=== PATIENT | male | born 1965 | race African-American/Black ===

== ENCOUNTER 2018-10-26 02:53 | Inpatient (IN) | payer SELFPAY ==
[~2018-10-26] VITALS: Ht 182.9 cm; Wt 98.9 kg
[2018-10-26 04:14] LABS: Basophils # (auto) 0.1 uL; Basophils % (auto) 0.8 % (0.0-2.0); Eosinophils # (auto) 0.1 uL; Hematocrit 45.5 % (41.0-53.0); Hemoglobin 15.7 g/dL (13.5-17.5); Lymphocytes # (auto) 2.2 uL; Lymphocytes % (auto) 29.2 % (10.0-50.0); Mean Corpuscular Hemoglobin 27.7 pg (28.0-32.0); Mean Corpuscular Hgb Conc. 34.6 g/dL (32.0-36.0); Mean Corpuscular Volume 80.1 fL (80.0-100.0); Monocytes # (auto) 0.7 uL; Monocytes % (auto) 9.4 % (0.0-12.0); Neutrophils # (auto) 4.4 uL; Neutrophils % (auto) 58.6 % (37.0-80.0); Nucleated Red Blood Cells % 0.1 %; Platelet Count (auto) 340 10^3/uL (140-450); Red Blood Cells 5.67 10^6/uL (4.5-5.90); Red Cell Distribution Width 12.8 % (11.8-14.3); White Blood Cell 7.4 10^3/uL (4.4-10.8)
[2018-10-26 04:31] LABS: Calcium 8.9 mg/dL (8.5-10.1); Potassium 3.9 mmol/L (3.5-5.1)
[2018-10-26 04:36] LABS: BUN/Creatinine Ratio 14.2; Bilirubin, Total 0.4 mg/dL (0.2-1.0); Total Protein 8.6 g/dL (6.4-8.2)
[2018-10-26 04:44] LABS: INR 0.96 (0.9-1.15); Partial Thromboplastin Time 28.1 sec (23.64-32.05)
[2018-10-26] MEDS ORDERED: ASPirin-EC 325mg tab PO ONE (06:15)
[2018-10-26] MEDS ORDERED: ENOXAPARIN SOD 100 MG/1 ML SYRINGE SC ONE (07:15)
[2018-10-26] MEDS ORDERED: NITROGLYCERIN 0.4 MG SL TAB SL ONE (07:15)
[2018-10-26] MEDS ORDERED: ACETAMINOPHEN 500 MG TAB PO PRN (09:00)
[2018-10-26] MEDS ORDERED: NITROGLYCERIN 0.4 MG SL TAB SL PRN (09:00)
[2018-10-26] MEDS ORDERED: MORPHINE SULF INJ 2 MG/ML SYRINGE 1ML IV PRN ×2 (09:00)
[2018-10-26] MEDS ORDERED: HYDROcodone-ACET 5/325MG TAB PO PRN (09:00)
[2018-10-26] MEDS ORDERED: ONDANSETRON HCL 4 MG/2 ML VIAL IV PRN (09:00)
[2018-10-26] MEDS ORDERED: hydrALAZINE HCL 20 MG/ML VL IV PRN (09:00)
[2018-10-26] MEDS: METOPROLOL TARTRATE 25 MG TAB PO SCH ×2 (10:33→21:37)
[2018-10-26] MEDS: LISINOPRIL 10 MG TAB PO SCH (10:33)
[2018-10-26] MEDS: FAMOTIDINE 20 MG TAB PO SCH (10:34)
[2018-10-26] MEDS: NITROGLYCERIN 0.4MG/HR TOPICAL PATCH TD SCH (10:34)
[2018-10-26] MEDS: DOCUSATE SOD 100 MG CAP PO SCH ×2 (10:34→21:36)
[2018-10-26 16:59] LABS: Alcohol, Urine < 3.0 mg/dL (0-5); Amphetamine Screen, Urine NEGATIVE (NEGATIVE); Barbiturate Scree,Urine NEGATIVE (NEGATIVE); Benzodiazephine Screen, Urine NEGATIVE (NEGATIVE); Cannabinoid Screen, Urine POSITIVE (NEGATIVE); Cocaine Screen, Urine NEGATIVE (NEGATIVE); Opiate Scree,Urine NEGATIVE (NEGATIVE); Phencyclidine Screen, Urine NEGATIVE (NEGATIVE)
[2018-10-26] MEDS ORDERED: AMLO5TAB15 PO (20:54)
--- NOTE | 2018-10-26 21:30 | NUR ---
tele admit from ER pt arrived via wheelchair, awake, alert and oriented x4. pt on room air no distress noted or expressed. pt tele #[id number] showing NSR 75bpm upon arrival. pt able to transfer to bed without issue. pt denies any pain at this time. when asked about pain, pt reports "i have been under a lot of stress lately, i feel like thats got a lot to do with it..." pt continues "since i been here, i havent had any pain". pt oriented to Ambrosio COLBERT as his nurse, the room, and use of call light as well as bed functions. pt updated on plan of care, no questions at this time. pt call light in reach, bed locked, low and 2xrails up. will round on pt q1hr and prn.
[2018-10-26] MEDS: ATORVASTATIN 20 MG TAB PO SCH (21:37)
[2018-10-26 22:00] VITALS: BP 137/79
[2018-10-27 05:00] VITALS: BP 104/63
[2018-10-27 06:19] LABS: Basophils # (auto) 0 uL; Basophils % (auto) 0.4 % (0.0-2.0); Eosinophils # (auto) 0.1 uL; Eosinophils % (auto) 0.9 % (0.0-7.0); Hematocrit 40.3 % (41.0-53.0); Lymphocytes # (auto) 1.5 uL; Lymphocytes % (auto) 18.3 % (10.0-50.0); Mean Corpuscular Hemoglobin 27.7 pg (28.0-32.0); Mean Corpuscular Hgb Conc. 34.7 g/dL (32.0-36.0); Mean Corpuscular Volume 79.6 fL (80.0-100.0); Monocytes % (auto) 11.9 % (0.0-12.0); Neutrophils # (auto) 5.6 uL; Neutrophils % (auto) 68.5 % (37.0-80.0); Nucleated Red Blood Cells % 0.1 %; Platelet Count (auto) 312 10^3/uL (140-450); Red Blood Cells 5.06 10^6/uL (4.5-5.90); Red Cell Distribution Width 12.9 % (11.8-14.3); White Blood Cell 8.2 10^3/uL (4.4-10.8)
[2018-10-27 06:37] LABS: Potassium 4.6 mmol/L (3.5-5.1)
[2018-10-27 06:44] LABS: BUN/Creatinine Ratio 13.3
[2018-10-27 07:07] LABS: INR 0.99 (0.9-1.15); Partial Thromboplastin Time 29.1 sec (23.64-32.05)
--- NOTE | 2018-10-27 08:00 | NUR ---
Morning note Patient resting in bed with even and unlabored respirations, no distress noted. Instructed patient on POC, fall precautions and to call for assistance as needed. patient verbalized understanding. Fall precautions in place with bed in lowest locked position with call light within reach. Will continue to monitor q1hr & PRN.
[2018-10-27 09:00] VITALS: BP 120/78
[2018-10-27] MEDS: FAMOTIDINE 20 MG TAB PO SCH (09:33)
[2018-10-27] MEDS: DOCUSATE SOD 100 MG CAP PO SCH ×2 (09:33→21:26)
[2018-10-27] MEDS: ASPirin-EC 81 mg tab PO SCH (09:33)
[2018-10-27] MEDS: METOPROLOL TARTRATE 25 MG TAB PO SCH ×2 (09:34→21:26)
[2018-10-27] MEDS: LISINOPRIL 10 MG TAB PO SCH (09:34)
[2018-10-27] MEDS: NITROGLYCERIN 0.4MG/HR TOPICAL PATCH TD SCH (10:00)
[2018-10-27 13:00] VITALS: BP 125/76
--- NOTE | 2018-10-27 13:17 | NUR ---
Patient resting in bed with eyes closed respirations even and unlabored, no distress noted.
--- NOTE | 2018-10-27 14:54 | NUR ---
Isaias was at bedside Isaias Franks to Dr. Cheng, was at bedside discussing POC with the patient. Patient verbalized understanding.
--- NOTE | 2018-10-27 15:28 | NUR ---
Patient transferred to [facility] [employer] [facility] via hospital bed. IV patent with no leaking and/or infiltration noted. Consents signed by patient. Care endorsed to Ashley [facility] [employer] RN.
--- NOTE | 2018-10-27 15:56 | NUR ---
RE: intervention patient off unit at scheduled procedure. Addendum: 10/27/18 at 1557 by Olivia Agarwal RN Amended: Links added.
[2018-10-27] MEDS ORDERED: LIDOCAINE 2%HCL (LOCAL ANESTH.) INJ 20ML MDV ONE (15:59)
[2018-10-27] MEDS ORDERED: MIDAZOLAM HCL 1MG/1ML-2 ML VIAL ONE ×2 (16:07→16:58)
[2018-10-27] MEDS ORDERED: ANGIOMAX 250 MG VIAL IV ONE (16:08)
[2018-10-27] MEDS ORDERED: SODIUM CHL 0.9% 50 ML ONE (16:08)
[2018-10-27] MEDS ORDERED: IOHEXOL 350 MG/ML 100ML IJ ONE (16:08)
[2018-10-27] MEDS ORDERED: fentaNYL CITRATE 100 MCG/2 ML VL ONE ×2 (16:08→16:58)
--- NOTE | 2018-10-27 18:18 | NUR ---
Patient back on unit via hospital bed. Right groin assessed and pedal pulse assessed on affected leg for circulation. Dressing to right groin is clean, dry and intact. Bed alarm turned on for safety. Call light within reach.
--- NOTE | 2018-10-27 18:19 | NUR ---
Patient cleared for discharge per Dr. Cheng Orders received and read back to verify.
--- NOTE | 2018-10-27 18:35 | NUR ---
Notified Dr. Bone Notified Dr. Bone of completion of heart catheterization and Dr. Cheng's recommendation. MD verbalized understanding. Patient to be discharged 10/28/18. Patient updated on POC. Patient verbalized understanding.
--- NOTE | 2018-10-27 18:38 | NUR ---
Dressing to right groin clean, dry and intact. Patient denies CP. Pedal pulse assessed on the affected leg for circulation.
--- NOTE | 2018-10-27 18:39 | NUR ---
Closing note patient resting in bed with even and unlabored respirations, no distress noted. Call light within reach.
--- NOTE | 2018-10-27 18:50 | NUR ---
Prescriptions called into preferred pharmacy per Dr. Cheng's order Prescriptions called into [facility] on [address] in [place]. Phone number is [phone]. Spoke with medhat Aguilar. 4 prescriptions called into the patient's preferred pharmacy per Dr. Cheng's order.
--- NOTE | 2018-10-27 19:30 | NUR ---
Care endorsed to FILEMON Santa. Patient resting in bed with even and unlabored respirations, no distress noted. Both RN's assessed right groin dressing. Dressing is clean, dry and intact. Call light within reach.
--- NOTE | 2018-10-27 20:00 | NUR ---
OPENING NOTE RECEIVED REPORT FROM DAYSHIFT RN. ASSUMING ROLE OF CARE OF PATIENT AT THIS TIME. PATIENT EDUCATED ON PLAN OF CARE FOR THE NIGHT AND PATIENT VERBALIZED UNDERSTANDING. PATIENT STATES THAT HE IS HUNGRY THOUGH AND SO PATIENT GIVEN FOOD AT THIS TIME. PATIENT SHOWING NO SIGN OF DISTRESS, SHORTNESS OF BREATH, AND PATIENT DENIES ANY PAIN AT THIS TIME. PATIENT'S DRESSING SHOWED LIGHT SATURATION AT THIS TIME. DRESSING CHANGED AND REINFORCED. CHARGE NURSE MADE AWARE. BED LOWERED, CALL LIGHT WITHIN REACH, AND PATIENT WILL BE ROUNDED ON EVERY HOUR AND NEEDED.
[2018-10-27] MEDS: ATORVASTATIN 20 MG TAB PO SCH (21:26)
[2018-10-27 22:00] VITALS: BP 134/78
[2018-10-28 05:00] VITALS: BP 149/89
--- NOTE | 2018-10-28 08:30 | NUR ---
WET PROCESS MILLER RIGGS IN TO EVALUATE PT FROM CARDIOLOGY STAND POINT. PT AWAKE, ALERT, COOPERATIVE OF CARE. ALL QUESTIONS AND CONCERNS ADDRESSED. PT IN AGREEMENT WITH PLAN OF CARE.
[2018-10-28 09:15] VITALS: BP 141/89
[2018-10-28] MEDS: FAMOTIDINE 20 MG TAB PO SCH (09:56)
[2018-10-28] MEDS: DOCUSATE SOD 100 MG CAP PO SCH (09:56)
[2018-10-28] MEDS: LISINOPRIL 10 MG TAB PO SCH (09:57)
[2018-10-28] MEDS: ASPirin-EC 81 mg tab PO SCH (09:57)
[2018-10-28] MEDS: NITROGLYCERIN 0.4MG/HR TOPICAL PATCH TD SCH (09:57)
[2018-10-28] MEDS: METOPROLOL TARTRATE 25 MG TAB PO SCH (09:57)
[2018-10-28] MEDS ORDERED: DILTIAZEM HCL 120MG ER CAP PO SCH (10:00)
--- NOTE | 2018-10-28 12:50 | NUR ---
DR. FITZPATRICK IN TO SEE PT. PER MD PT OK FOR DC HOME. PT IN AGREEMENT. PRESCRIPTION MEDICATIONS VERIFICATION AT PT'S PREFERRED PHARMACY DONE. PHARMACY [facility] HAS PRESCRIPTION.
[2018-10-28 13:08] VITALS: BP 138/86
[2018-10-28 13:33] VITALS: BP 138/86
--- NOTE | 2018-10-28 14:10 | NUR ---
DISCHARGE INSTRUCTIONS PROVIDED TO PT. PT VERBALIZED UNDERSTANDING FOR PRESCRIPTION ORDERS AND FOLLOW UP APPOINTMENT. EDUCATIONAL MATERIAL PROVIDED, QUESTIONS AND CONCERNS ADDRESSED. TELE BOX REMOVED AND RETURNED TO [facility]. IV CATHETER DC'D, CATHETER INTACT, NO PHLEBITIS. PT SAFELY ESCORTED OUT OF UNIT. NO S/S OF DISTRESS.
== END 2018-10-28 14:00 | disposition home or self-care (01) | DRG 282 ==
LOC: ER 02:57 → TELE 02:58 → TELE-WESTW 20:47
PROVIDERS: ADMIT Nurse Practitioner Acute Care; ATTEND Internal Medicine
PROC: 4A023N7 Measurement of Cardiac Sampling and Pressure, Left Heart, Percutaneous Approach (ICD-10-PCS; principal; 2018-10-27)
PROC: B2111ZZ Fluoroscopy of Multiple Coronary Arteries using Low Osmolar Contrast (ICD-10-PCS; 2018-10-27)
PROC: B2151ZZ Fluoroscopy of Left Heart using Low Osmolar Contrast (ICD-10-PCS; 2018-10-27)
PROC: 4A033BC Measurement of Arterial Pressure, Coronary, Percutaneous Approach (ICD-10-PCS; 2018-10-27)
DX: I21.4 Non-ST elevation (NSTEMI) myocardial infarction (principal); F12.90 Cannabis use, unspecified, uncomplicated; I11.9 Hypertensive heart disease without heart failure; R73.03 Prediabetes; I25.119 Atherosclerotic heart disease of native coronary artery with unspecified angina pectoris; E66.9 Obesity, unspecified; Z68.29 Body mass index [BMI] 29.0-29.9, adult; Z83.3 Family history of diabetes mellitus; Z82.49 Family history of ischemic heart disease and other diseases of the circulatory system; Z80.0 Family history of malignant neoplasm of digestive organs; Z87.891 Personal history of nicotine dependence; Z79.899 Other long term (current) drug therapy
CPT/HCPCS: 36415; 71046; 80048; 80053; 80061; 80307; 83036; 83880; 84484; 85025; 85610; 85730; 86141; 93005; 93306; 93458; 96372; 99152; C1887; G0378; J2250